=== PATIENT | male | born 1985 | race Caucasian/White ===

== ENCOUNTER 2024-11-22 20:32 | Observation (INO) ==
--- NOTE | 2024-11-22 20:58 | Emergency Department Note ---
HPI - General Adult General Chief complaint: Urogenital-Male Stated complaint: poss high sugar, frequent urination, gen weakness Time Seen by Provider: 11/22/24 20:48 Source: patient and family Mode of arrival: walk-in Limitations: no limitations History of Present Illness HPI narrative: This is a 39 year old male patient that presents to the ER with c/o increased thirst, hunger and urination with blurry vision for 1 week. Patient states he checked his BS at home randomly and the machine read HI. patient has no known hx of DM. Patient denies any chest pain, SOB, back pain, abdominal pain or vomiting Onset (ago): day(s) (7) Exacerbating factors: Reports none Associated symptoms: Reports denies other symptoms Treatments prior to arrival: Reports none Related Data Allergies Allergy/AdvReac Type Severity Reaction Status Date / Time No Known Drug Allergies Allergy Verified 11/22/24 20:50 Review of Systems Status of ROS 10 or more systems reviewed and unremark able except as noted in history and below Constitutional Denies: fever, chills, change in weight, fatigue, malaise, night sweats or change in sleep pattern Eyes Reports: blurry vision; Denies: change in vision, blind spots, light sensitivity or eye discomfort Ears, nose, mouth, and throat Denies: throat pain, neck pain, throat swelling, difficulty swallowing, hoarseness, mouth pain or swelling of lips/tongue Cardiovascular Denies: chest pain, palpitations, edema, swelling of feet/ankles, lightheadedness or shortness of breath with exertion Respiratory Denies: shortness of breath, cough, wheezing, stridor, pain on inspiration or change in phlegm color Gastrointestinal Reports: nausea; Denies: abdominal pain, vomiting, coffee grounds in vomit, heartburn, diarrhea or constipation Genitourinary Reports: urinary frequency and urinary urgency; Denies: painful urination Musculoskeletal Denies: back pain, neck pain, extremity pain, extremity swelling or joint pain Integumentary/Breast Denies: rash, itching, redness, skin pain, skin tenderness or skin swelling Neurological Denies: headache, numbness in extremities, weakness in extremities, lack of coordination, dizziness, vertigo or confusion Psychiatric Denies: anxiety, mood swings, panic attacks, change in sleep pattern, hopelessness or loss of interest Endocrine Reports: excessive urination and excessive thirst; Denies: fatigue, cold intolerance, excessive sweating, flushing, heat intolerance, deepening of the voice, change in body appearance or change in libido Hematologic/Lymphatic Denies: easy bruising or easy bleeding Allergic/Immunologic Denies: hives, throat swelling, tongue swelling, facial swelling or wheezing PFSH PFS Social History Smoking status: current every day smoker What is your current living situation: I presently have a place to live Problems where you live: no known problems Exam Constitutional: normal general appearance and no apparent distress Vital Signs - 24 hr 11/22/24 20:35 Temperature 98.0 F Pulse Rate 80 Respiratory Rate 16 Blood Pressure 137/84 Pulse Oximetry 93 L Oxygen Delivery Me thod Room Air HENMT: normocephalic, head/scalp atraumatic, hearing grossly normal bilaterally, external ears normal, EACs normal, nasal mucous membranes normal, external nose normal, oral mucous membranes normal and oropharynx normal Eyes: PERRL, EOMs intact bilaterally, conjunctivae normal and no scleral icterus Neck/C-Spine: visual inspection normal and trachea midline Lymph: no lymphadenopathy noted Chest: inspection of chest normal Respiratory: breath sounds equal bilaterally, normal respiratory effort, clear to auscultation bilaterally, no wheezes, no rales, no retractions, no use of accessory muscles and chest percussion normal Cardiovascular: normal heart rate noted, regular rhythm noted, no gallop, no rub, no murmur, no JVD, no clicks, peripheral pulses 2+ throughout, no bruits noted and no additional abnormal heart sounds Gastrointestinal: abdomen normal to inspection, abdomen soft to palpation, nontender to palpation, nontender to percussion, nondistended, normoactive bowel sounds, no hepatosplenomegaly, no masses, no pulsatile mass, no ascites and no hernia Genitourinary: no CVA tenderness Back/Pelvis: spine normal to inspection Extremities: normal to inspection, normal to palpation, no tenderness, full ROM, no joint enlargement and no deformity Neurology: practical nursing faculty II-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 VSS, no s/s of acute distress noted Vital Signs Vital signs: Vital Signs Temperature 98.0 F 11/22/24 20:35 Pulse Rate 80 11/22/24 20:35 Respiratory Rate 16 11/22/24 20:35 Blood Pressure 137/84 11/22/24 20:35 Pulse Oximetry 93 L 11/22/24 20:35 Oxygen Delivery Method Room Air 11/22/24 20:35 Temperature 98.0 F 11/22/24 20:35 Pulse Rate 80 11/22/24 20:35 Respiratory Rate 16 11/22/24 20:35 Blood Pressure 137/84 11/22/24 20:35 Pulse Oximetry 93 L 11/22/24 20:35 Oxygen Delivery Method Room Air 11/22/24 20:35 Medical Decision Making Differential Diagnosis Differential Diagnosis: viral illness Medical Records Medical records reviewed: Yes I reviewed the patient's medical records Lab Data Lab results reviewed: Yes I reviewed the patient's lab results Labs: Lab Results 11/22/24 Range/Units 21:15 WBC 9.2 (3.7-9.6) K/uL RBC 4.9 (4.40-5.80) M/uL Hgb 15.3 (14.0-17.4) gm/dL Hct 42.7 (41.3-50.1) % MCV 86.7 (81.9-96.5) fl MCH 31.0 (27.6-33.7) pg MCHC 35.8 H (33.0-35.7) g/dl RDW 13.8 (11.0-14.8) % Plt Count 284 (142-355) K/uL MPV 9.1 (6.0-10.4) fl Gran % 57.1 (49.1-73.1) % Lymph % (Auto) 35.1 (17.6-39.05) % [place] % (Auto) 5.7 (4.5-10.7) % Eos % (Auto) 1.3 (0.0-4.0) % Baso % (Auto) 0.8 (0.0-1.3) Lymph # (Auto) 3.2 H (0.8-2.9) [place] # (Auto) 0.5 (0.2-0.8) Eos # (Auto) 0.1 (0.0-0.3) Baso # (Auto) 0.1 (0.0-0.1) Absolute Gran (auto) 5.3 (2.0-6.2) Sodium 126 L (136-145) mmol/L Potassium 4.6 (3.6-5.2) mmol/L Chloride 94.0 L (98-107) mmol/L Carbon Dioxide 19 L (21-32) mmol/L Anion Gap 13.0 (4-14) mEq/L BUN 17 (7-18) mg/dL Creatinine 1.0 (0.6-1.3) mg/dL Estimated GFR 97.0 (>59.9) Glucose 731 H* (70-110) mg/dL Calcium 8.4 L (8.5-10.1) mg/dL Total Bilirubin 0.60 (0.0-1.0) mg/dL AST 27 (15-37) U/L ALT 31 (30-65) U/L Alkaline Phosphatase 141 H (50-136) U/L Total Protein 7.3 (6.4-8.2) g/dL Albumin 3.8 (3.4-5.0) g/dL Urine Color Yellow (STRAW/YELL.) Urine Appearance Clear (CLEAR) Ur Specific [place] 1.005 (1.001-1.035) Urine Protein Negative (NEGATIVE) Urine Glucose (UA) 3+ (NORMAL) Urine Ketones Negative (NEGATIVE) Urine Occult Blood Negative (NEG - TRACE) Urine Nitrite Negative (NEGATIVE) Urine Bilirubin Negative (NEGATIVE) Urine Urobilinogen Normal (NORMAL) Ur Leukocyte Esterase Negative (NEGATIVE) Fluid pH 6.0 (5 - 9) Acetone, Qual Negative Discharge Plan Discharge Patient Disposition: Admitted As Observation Condition: Stable Clinical Impression: Hyperglycemia, Acute hyponatremia Time of Disposition: 23:18
[2024-11-22] MEDS ORDERED: 0.9 % SODIUM CHLORIDE 1000 ML 1,000 ML IV ONE (21:28)
[2024-11-22] MEDS: 0.9 % SODIUM CHLORIDE 1000 ML 1,000 ML IV STA ×2 (21:29→23:20)
[2024-11-22 21:30] LABS: Basophils #(Absolute) Auto 0.1 (0.0-0.1); Basophils%(Percent) Auto 0.8 (0.0-1.3); Eosinophils#(Absolute)Auto 0.1 (0.0-0.3); Eosinophils%(Percent) Auto 1.3 % (0.0-4.0); Granulocytes % - Auto 57.1 % (49.1-73.1); Granulocytes#(Absolute)- Auto 5.3 (2.0-6.2); Hematocrit 42.7 % (41.3-50.1); Mean Corpuscular Volume 86.7 fl (81.9-96.5); Monocytes #(Absolute)- Auto 0.5 (0.2-0.8); Monocytes %(Percent)- Auto 5.7 % (4.5-10.7); Platelet Count 284 K/uL (142-355); White Blood Count 9.2 K/uL (3.7-9.6)
[2024-11-22 21:32] LABS: Urine Appearance CLEAR (CLEAR); Urine Color YELLOW (STRAW/YELL.)
[2024-11-22 21:33] LABS: Specific Gravity Urine 1.005 (1.001-1.035); Urine Blood NEGATIVE (NEG - TRACE); Urine Urobilinogen Normal (NORMAL)
[2024-11-22 23:12] LABS: Potassium 4.6 mmol/L (3.6-5.2)
[2024-11-23] MEDS ORDERED: DOCUSATE SODIUM 100 MG CAPSULE PO PRN (02:43)
[2024-11-23] MEDS ORDERED: ACETAMINOPHEN 500 MG TABLET PO PRN (02:43)
[2024-11-23] MEDS ORDERED: ONDANSETRON HCL/PF 4 MG/2 ML VIAL INJ PRN (02:43)
[2024-11-23] MEDS: 0.9 % SODIUM CHLORIDE 1000 ML 1,000 ML IV SCH (03:23)
[2024-11-23 06:57] LABS: Basophils%(Percent) Auto 0.5 (0.0-1.3); Eosinophils#(Absolute)Auto 0.2 (0.0-0.3); Eosinophils%(Percent) Auto 2.1 % (0.0-4.0); Granulocytes % - Auto 43.3 % (49.1-73.1); Granulocytes#(Absolute)- Auto 3.4 (2.0-6.2); Hematocrit 39.4 % (41.3-50.1); Mean Corpuscular Volume 84.5 fl (81.9-96.5); Monocytes #(Absolute)- Auto 0.5 (0.2-0.8); Monocytes %(Percent)- Auto 6.7 % (4.5-10.7); Platelet Count 252 K/uL (142-355); White Blood Count 7.7 K/uL (3.7-9.6)
[2024-11-23 08:03] LABS: Potassium 3.7 mmol/L (3.6-5.2)
[2024-11-23] MEDS: GLIMEPIRIDE 2 MG TABLET PO SCH (12:46)
[2024-11-23] MEDS: METFORMIN HCL 500 MG TABLET PO SCH (12:46)
--- NOTE | 2024-11-23 13:33 | History & Physical Report ---
H&P: HPI History of Present Illness Chief complaint: poss high sugar, frequent urination, gen weakness Narrative: This is a 39 year old male patient that presents to the ER with c/o increased thirst, hunger and urination with blurry vision for 1 week. Patient states he checked his BS at home randomly and the machine read HI. patient has no known hx of DM. Patient denies any chest pain, SOB, back pain, abdominal pain or vomiting Review of Systems Status of ROS 10 or more systems reviewed and unremark able except as noted in history and below Constitutional Denies: fever, chills, change in weight, fatigue, malaise, night sweats or change in sleep pattern Eyes Reports: blurry vision; Denies: change in vision, blind spots, light sensitivity or eye discomfort Ears, nose, mouth, and throat Denies: throat pain, neck pain, throat swelling, difficulty swallowing, hoarseness, mouth pain, swelling of lips/tongue or vertigo Cardiovascular Denies: chest pain, palpitations, edema, swelling of feet/ankles, lightheadedness or shortness of breath with exertion Respiratory Denies: shortness of breath, cough, wheezing, stridor, pain on inspiration or change in phlegm color Gastrointestinal Reports: nausea; Denies: abdominal pain, vomiting, coffee grounds in vomit, heartburn, diarrhea, constipation or difficulty swallowing Genitourinary Reports: urinary frequency and urinary urgency; Denies: painful urination or change in libido Musculoskeletal Denies: back pain, neck pain, extremity pain, extremity swelling or joint pain Integumentary/Breast Denies: rash, itching, redness, skin pain, skin tenderness or skin swelling Neurological Denies: headache, numbness in extremities, weakness in extremities, lack of coordination, dizziness, vertigo or confusion Psychiatric Denies: anxiety, mood swings, panic attacks, change in sleep pattern, hopelessness or loss of interest Endocrine Reports: excessive urination and excessive thirst; Denies: fatigue, cold intolerance, excessive sweating, flushing, heat intolerance, deepening of the voice, change in body appearance or change in libido Hematologic/Lymphatic Denies: easy bruising or easy bleeding Allergic/Immunologic Denies: hives, throat swelling, tongue swelling, facial swelling or wheezing PFSH PFSH Social History Smoking status: current every day smoker What is your current living situation: I presently have a place to live Problems where you live: no known problems Highest level of school completed/degree received: GED or equivalent Meds Home Medications and Allergies Allergies Allergy/AdvReac Type Severity Reaction Status Date / Time No Known Drug Allergies Allergy Verified 11/22/24 20:50 Exam Constitutional: abnormal general appearance (disheveled), (chronically ill) and (frail appearing), no apparent distress, abnormal body habitus (overweight), no limitations and alert Vital Signs - 24 hr 11/22/24 20:35 11/22/24 21:00 11/22/24 21:41 Temperature 98.0 F Pulse Rate 80 72 68 Pulse Rate [Bilate ral] Respiratory Rate 16 16 16 Blood Pressure 137/84 137/80 126/73 Blood Pressure [Le ft Arm] Pulse Oximetry 93 L 92 L 94 L Oxygen Delivery [facility] Room Air Room Air Room Air 11/22/24 22:00 11/22/24 22:21 11/22/24 22:40 Temperature Pulse Rate 72 71 82 Pulse Rate [Bilate ral] Respiratory Rate 14 18 14 Blood Pressure 122/73 119/72 112/86 Blood Pressure [Le ft Arm] Pulse Oximetry 93 L 93 L 93 L Oxygen Delivery [facility] Room Air Room Air Room Air 11/22/24 23:01 11/22/24 23:30 11/23/24 00:00 Temperature Pulse Rate 63 60 92 H Pulse Rate [Bilate ral] Respiratory Rate 18 16 18 Blood Pressure 112/62 127/83 119/77 Blood Pressure [Le ft Arm] Pulse Oximetry 92 L 93 L 94 L Oxygen Delivery [facility] Room Air Room Air Room Air 11/23/24 01:00 11/23/24 02:22 11/23/24 02:48 Temperature Pulse Rate 57 L 68 Pulse Rate [Bilate ral] Respiratory Rate 18 18 Blood Pressure 117/65 113/71 Blood Pressure [Le ft Arm] Pulse Oximetry 94 L 94 L Oxygen Delivery [facility] Room Air Room Air 11/23/24 04:00 11/23/24 08:00 11/23/24 12:00 Temperature 97.9 F 98.0 F 97.5 F L Pulse Rate Pulse Rate [Bilate ral] 56 L 65 58 L Respiratory Rate 17 19 16 Blood Pressure Blood Pressure [Le ft Arm] 129/79 123/73 137/78 Pulse Oximetry 99 96 98 Oxygen Delivery Me thod Room Air Room Air Room Air HENMT: normocephalic, head/scalp atraumatic, hearing grossly normal bilaterally, external ears normal, EACs normal, nasal mucous membranes normal, external nose normal, oral mucous membranes normal and oropharynx normal Eyes: PERRL, EOMs intact bilaterally, conjunctivae normal and no scleral icterus Neck/C-Spine: visual inspection normal and trachea midline Lymph: no lymphadenopathy noted Chest: inspection of chest normal Respiratory: breath sounds equal bilaterally, normal respiratory effort, clear to auscultation bilaterally, no wheezes, no rales, no retractions, no use of accessory muscles and chest percussion normal Cardiovascular: normal heart rate noted, regular rhythm noted, no gallop, no rub, no murmur, no JVD, no clicks, peripheral pulses 2+ throughout, no bruits noted and no additional abnormal heart sounds Gastrointestinal: abdomen normal to inspection, abdomen soft to palpation, nontender to palpation, nontender to percussion, nondistended, normoactive bowel sounds, no hepatosplenomegaly, no masses, no pulsatile mass, no ascites and no hernia Genitourinary: no CVA tenderness Back/Pelvis: spine normal to inspection Extremities: normal to inspection, normal to palpation, no tenderness, full ROM, no joint enlargement and no deformity Neurology: mat linker II-XII intact, no movement abnormality noted, no focal motor deficit noted, no sensory deficits noted, gait normal, speech normal, coordination normal, no pronator drift noted, no fasciculations noted and GCS normal Psychiatry: mental status grossly normal, oriented x3, thought process normal and cooperative Skin: skin color normal Assessment and Plan Assessment and Plan (1) Type 2 diabetes mellitus with hyperosmolarity without nonketotic hyperglycemic-hyperosmolar coma ([facility]): Code(s): E11.00 - Type 2 diabetes mellitus with hyperosmolarity without nonketotic hyperglycemic-hyperosmolar coma ([facility]) (2) Acute dehydration: Code(s): E86.0 - Dehydration (3) Anemia: Qualifiers: Anemia type: other cause Other causes of anemia: other cause, not classified Qualified Code(s): D64.89 - Other specified anemias Code(s): D64.9 - Anemia, unspecified (4) Hyponatremia: Code(s): E87.1 - Hypo-osmolality and hyponatremia Plan catious hydration Sliding scae insulin electrolyte replacemnent SSI per protocol Accu checs every ac and HS telemetry monitor bed alaram Results Labs Labs: CBC 11/22/24 11/23/24 Range/Units 21:15 05:55 WBC 9.2 7.7 (3.7-9.6) K/uL RBC 4.9 4.7 (4.40-5.80) M/uL Hgb 15.3 13.8 L (14.0-17.4) gm/dL Hct 42.7 39.4 L (41.3-50.1) % Plt Count 284 252 (142-355) K/uL Gran % 57.1 43.3 L (49.1-73.1) % Lymph % (Auto) 35.1 47.4 H (17.6-39.05) % [place] % (Auto) 5.7 6.7 (4.5-10.7) % Eos % (Auto) 1.3 2.1 (0.0-4.0) % Baso % (Auto) 0.8 0.5 (0.0-1.3) Lymph # (Auto) 3.2 H 3.7 H (0.8-2.9) [place] # (Auto) 0.5 0.5 (0.2-0.8) Eos # (Auto) 0.1 0.2 (0.0-0.3) Baso # (Auto) 0.1 0.0 (0.0-0.1) Absolute Gran (auto) 5.3 3.4 (2.0-6.2) CMP 11/22/24 11/23/24 21:15 05:55 Sodium 126 L 136 Potassium 4.6 3.7 Chloride 94.0 L 103.0 Carbon Dioxide 19 L 21 BUN 17 13 Creatinine 1.0 1.0 Glucose 731 H* 285 H Calcium 8.4 L 8.0 L Liver Function 11/22/24 Range/Units 21:15 Total Bilirubin 0.60 (0.0-1.0) mg/dL AST 27 (15-37) U/L ALT 31 (30-65) U/L Alkaline Phosphatase 141 H (50-136) U/L Albumin 3.8 (3.4-5.0) g/dL Urine 11/22/24 21:15 Urine Color Yellow Urine Appearance Clear Ur Specific [place] 1.005 Urine Protein Negative Urine Glucose (UA) 3+ Pulse Oximetry Attestation: I have reviewed the pertinent pulse oximetry results. ECG Attestation: I have reviewed the pertinent ECG results. Prior ECG tracings: available for review
[2024-11-24 05:45] LABS: Basophils%(Percent) Auto 0.5 (0.0-1.3); Eosinophils#(Absolute)Auto 0.2 (0.0-0.3); Eosinophils%(Percent) Auto 2.4 % (0.0-4.0); Granulocytes % - Auto 49.7 % (49.1-73.1); Granulocytes#(Absolute)- Auto 3.6 (2.0-6.2); Hematocrit 40.2 % (41.3-50.1); Mean Corpuscular Volume 85.8 fl (81.9-96.5); Monocytes #(Absolute)- Auto 0.5 (0.2-0.8); Monocytes %(Percent)- Auto 6.5 % (4.5-10.7); Platelet Count 235 K/uL (142-355); White Blood Count 7.3 K/uL (3.7-9.6)
[2024-11-24 06:34] LABS: Potassium 4.3 mmol/L (3.6-5.2)
[2024-11-24 12:01] VITALS: BP 118/69; PULSE 56; RESP 17; TEMP 97.7
--- NOTE | 2024-11-24 15:03 | Discharge Summary ---
DS: Providers Provider Date of admission: 11/22/24 23:19 Primary care physician: NO PCP Provider Admitting clinician: aBrbi Cardenas Attending physician on admission: Kenisha Clarke Attending physician on discharge: Kenisha Clarke Discharging clinician: Kenisha Clarke Anticipated date of discharge: 11/24/24 DS: Diagnosis Discharge Diagnosis (1) Type 2 diabetes mellitus with hyperosmolarity without nonketotic hyperglycemic-hyperosmolar coma ([facility]): (2) Acute dehydration: (3) Anemia: Qualifiers: Anemia type: other cause Other causes of anemia: other cause, not classified Qualified Code(s): D64.89 - Other specified anemias (4) Hyponatremia: (5) New onset type 2 diabetes mellitus: DS: Summary Hospital Course Hospital Course: 2315: due to patient being a new onset diabetic with nausea, with BS reading HI and requiring a dose of IV insulin to lower it, will admit patient to the medical floor for further evaluation and treatment. VSS, no s/s of acute distress noted. patient improved with fluids and SSI and starting metformin and amaryl. Patient reports blurry vision persisting but no other complaints and feeling much better at time of discharge. Status at Discharge Overall status at discharge: patient is progressing back to baseline Time Spent with Patient Time attestation: Total time spent providing and/or coordinating discharge services: Exam Constitutional: normal general appearance, no apparent distress, abnormal body habitus (overweight), no limitations and alert Vital Signs - 24 hr 11/23/24 16:00 11/23/24 20:00 11/23/24 23:48 Temperature 98.1 F 97.8 F 97.8 F Pulse Rate [Bilate ral] 59 L 63 62 Respiratory Rate 15 17 16 Blood Pressure [Le ft Arm] 132/74 120/80 129/68 Pulse Oximetry 96 99 98 Oxygen Delivery Me thod Room Air Room Air Room Air 11/24/24 03:57 11/24/24 08:00 11/24/24 12:00 Temperature 97.6 F 98.4 F 97.7 F Pulse Rate [Bilate ral] 58 L 66 56 L Respiratory Rate 17 20 17 Blood Pressure [Le ft Arm] 113/67 114/73 118/69 Pulse Oximetry 99 97 97 Oxygen Delivery Me thod Room Air Room Air Room Air HENMT: normocephalic, head/scalp atraumatic, hearing grossly normal bilaterally, external ears normal, EACs normal, nasal mucous membranes normal, external nose normal, oral mucous membranes normal, oropharynx normal, dentition abnormal and gingiva normal Eyes: PERRL, EOMs intact bilaterally, conjunctivae normal, no scleral icterus, papilledema noted and periorbital findings normal Neck/C-Spine: visual inspection normal, trachea midline, cervical spine nontender, cervical full ROM noted, supple, no meningeal signs, thyroid normal and no carotid bruits Lymph: no lymphadenopathy noted and no lymphedema noted Chest: inspection of chest normal and palpation of chest normal Respiratory: breath sounds equal bilaterally, normal respiratory effort, clear to auscultation bilaterally, no wheezes, no rales, no retractions, no use of accessory muscles and chest percussion normal Cardiovascular: heart rate abnormal (bradycardic), regular rhythm noted, no gallop, no rub, no murmur, no JVD, no clicks, peripheral pulses 2+ throughout, no bruits noted and no additional abnormal heart sounds Gastrointestinal: abdomen abnormal to inspection (oese), abdomen soft to palpation, nontender to palpation, nondistended, normoactive bowel sounds, hepatosplenomegaly noted, no masses, no pulsatile mass, no ascites and no hernia Genitourinary: no CVA tenderness and bladder normal to palpation Back/Pelvis: spine abnormal to inspection, no thoracic spine tenderness, no l umbar spine tenderness, thoracic spine ROM normal, lumbar spine ROM normal and straight leg raise negative bilaterally Extremities: normal to inspection, normal to palpation, no tenderness, full ROM, no joint enlargement and deformity noted (callous on feet koko) Neurology: robotic 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 II-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, no movement abnormality noted, no focal motor d eficit noted, no sensory deficits noted, deep tendon reflexes 2+ bilaterally, gait normal, speech normal, coordination normal, no pronator drift noted, no fasciculations noted and GCS normal Psychiatry: Mental Status Exam documented within this Exam's Psych section mental status grossly normal, oriented x3, thought process normal, cooperative, affect normal, psychomotor activity normal and memory normal Feel stressed/tense/nervous/anxious/difficulty sleeping: not at all Skin: skin color normal, no rash, no lesions, no ecchymosis noted, no wounds, no lacerations, skin turgor normal, no jaundice, no petechiae, no mottling, nails abnormality noted and no alopecia DS: Data Data Completed and Pending Labs on day of discharge: Labs from last 24 hours 11/24/24 05:35 WBC 7.3 RBC 4.7 Hgb 13.8 L Hct 40.2 L MCV 85.8 MCH 29.6 MCHC 34.4 RDW 14.1 Plt Count 235 MPV 8.2 Gran % 49.7 Lymph % (Auto) 40.9 H [place] % (Auto) 6.5 Eos % (Auto) 2.4 Baso % (Auto) 0.5 Lymph # (Auto) 3.0 H [place] # (Auto) 0.5 Eos # (Auto) 0.2 Baso # (Auto) 0.0 Absolute Gran (auto) 3.6 Sodium 141 Potassium 4.3 Chloride 108.0 H Carbon Dioxide 25 Anion Gap 8.0 BUN 14 Creatinine 1.0 Estimated GFR 97.0 Glucose 199 H Calcium 8.0 L Discharge Plan Discharge Disposition: Home, Self-Care Condition: Improved Discharge Medications: New metformin 500 mg tablet 500 mg PO BIDWMEAL Qty: 60 0RF atorvastatin 10 mg tablet 10 mg PO QPM Qty: 30 0RF losartan 50 mg tablet 25 mg PO DAILY Qty: 30 0RF glimepiride 2 mg tablet 2 mg PO DAILY Qty: 30 0RF Discharge Orders: Discharge Order (Routine); Ordered 11/24/24 Ordered By: Kenisha Clarke Activity: increase activity as tolerated Activity Detail: at least 30 minutes a day of cardiovascular exercise and avoid heat Diet: diabetic diet and low fat, low cholesterol Diet Detail: increase water and zero calorie electrolyte drinks in daily diet Interventions: Discharge Assessment Last Done: 11/24/24 15:35 MED/SURG & ICU Observation Charge Sheet Last Done: 11/24/24 15:37 Patient Instructions: Type 2 Diabetes in Adults: New Diagnosis (DC), Managing Diabetes During Sick Days (DC), Hypertension and Diabetes (DC), Diabetes and Exercise (DC) Activity Restrictions/Additional Instructions: increase water and zero calorie electrolyte drinks in daily diet at least 30 minutes a day of cardiovascular exercise and avoid heat give list of local clinics that have a sliding scale option and also paperwork for [facility] Do a blood pressure blood sugar log to go back to his follow-up with his new PCP. Eye doctor appointment to be made by patient and at least once per year if every thing checks out ok on appointment as soon as possible Forms: Portal/Health Info Access Inst Follow-Ups: Provider,NO PCP [Primary Care Provider, Adminstration] Discharge Date/Time: 11/24/24 15:54
--- NOTE | 2024-11-24 15:13 | Progress Note ---
Exam Constitutional: Vital Signs - 24 hr 11/23/24 16:00 11/23/24 20:00 11/23/24 23:48 Temperature 98.1 F 97.8 F 97.8 F Pulse Rate [Bilate ral] 59 L 63 62 Respiratory Rate 15 17 16 Blood Pressure [Le ft Arm] 132/74 120/80 129/68 Pulse Oximetry 96 99 98 Oxygen Delivery Me thod Room Air Room Air Room Air 11/24/24 03:57 11/24/24 08:00 11/24/24 12:00 Temperature 97.6 F 98.4 F 97.7 F Pulse Rate [Bilate ral] 58 L 66 56 L Respiratory Rate 17 20 17 Blood Pressure [Le ft Arm] 113/67 114/73 118/69 Pulse Oximetry 99 97 97 Oxygen Delivery Me thod Room Air Room Air Room Air Progress Note: Objective Labs Labs: CBC 11/24/24 Range/Units 05:35 WBC 7.3 (3.7-9.6) K/uL RBC 4.7 (4.40-5.80) M/uL Hgb 13.8 L (14.0-17.4) gm/dL Hct 40.2 L (41.3-50.1) % Plt Count 235 (142-355) K/uL Gran % 49.7 (49.1-73.1) % Lymph % (Auto) 40.9 H (17.6-39.05) % [place] % (Auto) 6.5 (4.5-10.7) % Eos % (Auto) 2.4 (0.0-4.0) % Baso % (Auto) 0.5 (0.0-1.3) Lymph # (Auto) 3.0 H (0.8-2.9) [place] # (Auto) 0.5 (0.2-0.8) Eos # (Auto) 0.2 (0.0-0.3) Baso # (Auto) 0.0 (0.0-0.1) Absolute Gran (auto) 3.6 (2.0-6.2) CMP 11/24/24 05:35 Sodium 141 Potassium 4.3 Chloride 108.0 H Carbon Dioxide 25 BUN 14 Creatinine 1.0 Glucose 199 H Calcium 8.0 L Urine 11/22/24 21:15 Urine Color Yellow Urine Appearance Clear Ur Specific Start 1.005 Urine Protein Negative Urine Glucose (UA) 3+ Progress Note: A&P Assessment and Plan (1) Type 2 diabetes mellitus with hyperosmolarity without nonketotic hyperglycemic-hyperosmolar coma ([facility]): (2) Acute dehydration: (3) Anemia: Qualifiers: Anemia type: other cause Other causes of anemia: other cause, not classified Qualified Code(s): D64.89 - Other specified anemias (4) Hyponatremia: (5) New onset type 2 diabetes mellitus: Plan catious hydration Sliding scae insulin electrolyte replacemnent SSI per protocol Accu 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 Fall Risk Details [place] Fall Scale Risk Level: Low Fall Risk Current Medications: Current Medications Acetaminophen (Acetaminophen 500 Mg Tablet) 500 mg PO Q6H PRN PRN Reason: MILD PAIN SCALE 1-4 Docusate Sodium (Docusate Sodium 100 Mg Capsule) 100 mg PO DAILY PRN PRN Reason: Constipation Glimepiride (Glimepiride 2 Mg Tablet) 2 mg PO QDCC [facility] Last Admin: 11/24/24 08:17 Dose: 2 mg Sodium Chloride (Sodium Chloride) 1,000 mls @ 100 mls/hr IV CONT [facility] Last Admin: 11/24/24 09:29 Dose: 100 mls/hr Insulin Human Regular (Insulin Regular, Human 100 Unit/Ml) 0 unit SUBQ ACHS PRN; Protocol PRN Reason: hyperglycemia Last Admin: 11/24/24 08:16 Dose: 10 unit Metformin HCl (Metformin Hcl 500 Mg Tablet) 500 mg PO BIDWM [facility] Last Admin: 11/24/24 06:45 Dose: 500 mg Ondansetron HCl (Ondansetron Hcl/Pf 4 Mg/2 Ml Vial) 4 mg INJ Q6H PRN PRN Reason: Nausea And Vomiting Time Spent With Patient Time: Total time spent is greater than 50% in coordination of care (as documented) at patient's floor/unit and/or counseling patient:
== END 2024-11-24 15:54 | disposition home or self-care (01) ==
LOC: ED 20:32 → MS 20:32
PROVIDERS: ADMIT Nurse Practitioner Family; ATTEND Family Medicine